=== PATIENT | female | born 1965 | race Caucasian/White ===

== ENCOUNTER 2016-11-30 19:30 | Emergency (ER) | payer OTHER ==
[2016-11-30 19:57] VITALS: RESP 16; TEMP 98.4
--- NOTE | 2016-12-01 01:57 | PDOC ---
Lower Extremity Problem HPI - General Chief Complaint: Lower Extremity Problem/Injury Stated Complaint: Pain in left lower leg Date Seen by Provider: 11/30/16 Time Seen by Provider: 19:45 Source: POSITIVE: Patient Exam Limitations: POSITIVE: No limitations Nurse's Notes Reviewed & Considered: Yes - History of Present Illness Body Location Affected: REPORTS: Lower Extremity (L) Timing: REPORTS: Abrupt Duration: <24 hours Severity: Moderate Recent Injury: REPORTS: No Context of Injury: DENIES: Fall, Twist, Direct Blow, Incision, Burn, Crush, Stab , Prolonged Pressure on Ext, Other Location at Time of Onset: REPORTS: Home Quality: REPORTS: Aching, "Pain" Modifying Factors: REPORTS: Other (Pain is exacerbated by direct palpation) Associated Symptoms: DENIES: Chest Pain, Shortness of Breath, Rapid Heart Rate, Fainting, Other Similar Symptoms Previously: No Recent Care Received: REPORTS: Denies Any Prior Injuries Related to Current Complaint?: No - Patient Home Medications Home Medications: Home Medications Calcium Carbonate [Calcium Antacid] 500 mg PO .PRN 10/07/11 - Patient Allergies Allergies/Adverse Reactions: Allergies Allergy/AdvReac Type Severity Reaction Status Date / Time No Known Allergies Allergy Verified 11/30/16 19:35 Past Medical History - heen HEENT History: Denies History Cardiovascular History: Denies History Respiratory History: Denies History Gastrointestinal History: Gallbladder Disease Genitourinary History: Denies History Endocrine History: Denies History Musculoskeletal History: Back Pain Additional Musculoskeletal History: DOUBLE LAMINECTOMY L5-S1 Neurological History: Denies History Blood Disorders: Denies History Psychiatric History: Denies History History of Sexually Transmitted Diseases: No Female Reproductive History: Denies History Obstetrical History: Denies History Cancer History: Denies History In Past Year Been Physically Harmed or Verbally Threatened: No History of MDRO: No History of Other Communicable Diseases: No Tobacco Use: Current Every Day Smoker Alcohol Use: Occasionally Substance Use Type: None Previous Surgical History: No Significant Family History: No pertinent family hx Past Medical History Reviewed: Reviewed - No Changes ROS - Limitations ROS Limitations: No Limitations Constitution: REPORTS: Denies Symptoms Cardiovascular: REPORTS: Denies Cardiac Symptoms Respiratory: REPORTS: Denies Resp Symptoms Neurological: REPORTS: Denies Neuro Symptoms Gastrointestinal: REPORTS: Denies GI Symptoms Endocrine: REPORTS: Denies Symptoms Musculoskeletal: REPORTS: Calf Pain (Localized area of calf pain on palpation medial and distal aspect of calf; see diagram) Genitourinary: REPORTS: Denies Symptoms Eyes: REPORTS: Denies Symptoms ENT: REPORTS: Denies Symptoms Skin: REPORTS: Denies Skin Symptoms Lympathic: REPORTS: Denies Lympathic Symptoms Immunologic: POSITIVE: Denies Symptoms Psychiatric: POSITIVE: Denies Psych Symptoms Lower Ext Problem Exam - General Appearance General Appearance: POSITIVE: Alert, Cooperative, No Acute Distress, No Evidence of Trauma - Extremities Lower Extremity: POSITIVE: No Pedal Edema, Calf, Tenderness, Swelling (There is a localized area of pain with mild swelling and palpable "lump"medial and distal aspect of left calf. 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, Mood Appropriate, Affect Appropriate - Neck / Back / Pelvis Back / Neck: POSITIVE: Normal Inspection, Normal ROM - Skin Skin: POSITIVE: Normal Color, Warm, Dry, No Rash - Respiratory / CVS Respiratory / CVS: POSITIVE: No Respiratory Distress, Breath Sounds Normal, Regular Rate/Rhythm, Heart Sounds Normal Peripheral Pulses: Radial (R): 2+, Radial (L): 2+, Dorsalis-pedis (R): 2+, Dorsalis-pedis (L): 2+ - Abdomen Abdomen: Soft: (All Quadrants), Normal Bowel Sounds: (All Quadrants), Denies Tenderness: (All Quadrants), No Splenomegaly: (All Quadrants), No Hepatomegaly: (All Quadrants), No Guarding: (All Quadrants), No Rebound: (All Quadrants), No Palpable Pulse: (All Quadrants), No Palpabale Mass: (All Quadrants), No Distention: (All Quadrants), No Rigidity: (All Quadrants) Images - Lower Extremities Lower Extremities: 1 - Palpable nodule or cord, tender on palpation. Lower Ext Problem Progress - Results Reviewed by me Discussed with Radiologist: Yes Radiology Findings: No deep vein thrombosis; area of superficial vein thrombosis at site of palpable cord and tenderness. Discussed with the retail management keyholder. - Patient's Progress Pain Medication Addressed: POSITIVE: Yes (Recommended Aleve or Advil) School/Work Release Addressed: POSITIVE: Not Applicable Re-Examine Time: 21:20 Status: POSITIVE: Unchanged - Consult Counseled: POSITIVE: Patient, Family, RE: Radiology Results, RE: DX, RE: Need for F/U Patient Care Time - Estimated PCT Patient Care Time (In Minutes): 30 Vital Signs - Recent Vital Signs Vital Signs: Vital Signs (Last 8 hours) Temp Pulse Resp BP Pulse Ox 11/30/16 19:30 98.4 F 84 16 161/95 96 - VS Reviewed Vital Signs Reviewed: Yes Discharge Clinical Impression: Thrombophlebitis Discharge Disposition: Discharged to Home Condition: Stable Patient Instructions Given at Discharge: Superficial Thrombophlebitis (ED) Additional Instructions: You have a blood clot with some associated irritation in a superficial vein in your left lower leg. This is not a blood clot in a deep vein and this is not the kind of a problem in which blood clots might break off to go to the lung, heart, etc. Please take Aleve or Advil for discomfort. Apply warm moist compresses to area of discomfort. Follow-up with your primary care provider. Return here anytime if condition worsens in any way. Follow Up With: NONE,NONE [Primary Care Provider] - (Instructions as above. Follow-up with your primary care provider. Return here anytime if condition worsens in any way.)
== END 2016-11-30 21:36 | disposition home or self-care (01) ==
LOC: ER 19:30
DX: I80.02 Phlebitis and thrombophlebitis of superficial vessels of left lower extremity (principal)
CPT/HCPCS: 93971; 99282